=== PATIENT | female | born 1985 | race Asian ===

== ENCOUNTER 2017-06-21 09:23 | Emergency (ER) | payer BC ==
[~2017-06-21] VITALS: Ht 152.4 cm; Wt 77.1 kg
--- NOTE | 2017-06-21 09:23 | NUR ---
VAGINAL BLEEDING, 10 WEEKS , A2. GOWNED PT . AWAITING MD ORDER
[2017-06-21] MEDS ORDERED: IV NS 0.9% 1,000 ML BAG IV ONE (10:00)
[2017-06-21] MEDS ORDERED: ONDANSETRON HCL/PF 4 MG/2 ML VIAL IVP ONE (10:00)
--- NOTE | 2017-06-21 10:09 | NUR ---
[employer] BUS TECHNICIAN AT BEDSIDE FOR BLOOD DRAW
--- NOTE | 2017-06-21 10:11 | NUR ---
COLLECTIONS PROFESSIONAL AT BEDSIDE
[2017-06-21 10:31] LABS: CALCIUM, SERUM 9.2 mg/dL (8.5-10.1); CREATININE 0.6 mg/dL (0.6-1.3); POTASSIUM 4.2 mmol/L (3.5-5.1)
[2017-06-21 10:41] LABS: BASOPHILS # (AUTO) 0.1 /CMM (0.0-0.2); BASOPHILS % (AUTO) 0.6 % (0.0-2.0); EOSINOPHILS # (AUTO) 0.2 /CMM (0.0-0.7); EOSINOPHILS % (AUTO) 1.8 % (0.0-6.0); HEMATOCRIT 43 % (33-45); HEMOGLOBIN 13.6 g/dL (11.5-14.8); LYMPHOCYTES # (AUTO) 2.1 /CMM (0.8-4.8); LYMPHOCYTES % (AUTO) 21.1 % (20.0-44.0); MEAN CORPUSCULAR HEMOGLOBIN 25 PG (26.0-33.0); MEAN CORPUSCULAR HGB CONC 32 g/dl (31.0-36.0); MEAN CORPUSCULAR VOLUME 78 fL (82-100); MONOCYTES # (AUTO) 0.5 /CMM (0.1-1.30); MONOCYTES % (AUTO) 4.6 % (2.0-12.0); NEUTROPHILS # (AUTO) 7.2 /CMM (1.8-8.9); NEUTROPHILS % (AUTO) 71.9 % (43.0-81.0); PLATELET COUNT (AUTO) 332 /CMM (150-450); RDW COEFFICIENT OF VARIATION 14.9 (11.5-15.0); RED BLOOD CELL COUNT(AUTO) 5.44 MIL/uL (4.0-5.2)
[2017-06-21 10:46] LABS: INR 0.94 (0.87-1.13); PROTHROMBIN TIME 9.8 SECS (9.5-12.7)
[2017-06-21] MEDS ORDERED: ONDANSETRON HCL/PF 4 MG/2 ML VIAL ONE (10:54)
[2017-06-21 10:59] LABS: ALBUMIN 3.9 g/dL (3.4-5.0); BILIRUBIN,DIRECT 0.1 mg/dL (0.0-0.2); BILIRUBIN,TOTAL 0.3 mg/dL (0.2-1.0); TOTAL PROTEIN, SERUM 7.8 g/dL (6.4-8.2)
--- NOTE | 2017-06-21 11:00 | NUR ---
IV STARTED ON LAC, 20 G. BLOOD DRAWN AND SENT TO LAB. IV FLUIDS RUNNING PER MD ORDERS.
[2017-06-21 11:12] LABS: APPEARANCE,URINE Clear (CLEAR); BILIRUBIN,URINE Negative (NEGATIVE); BLOOD, URINE Large Ery/uL (NEGATIVE); COLOR,URINE Yellow (YELLOW); KETONES,URINE Negative (NEGATIVE); LEUKOCYTE ESTERASE ,URINE Negative (NEGATIVE); NITRITE, URINE Negative (NEGATIVE); PH,URINE 7.5 (5.0-8.0); PROTEIN,URINE Negative (NEGATIVE); UGLUCOSE Negative (NEGATIVE); UROBILINOGEN,URINE 0.2 EU/dL (0.2)
--- NOTE | 2017-06-21 11:12 | NUR ---
CALLED DR CATALAN'S OFFICE AND THEY NOTIFIED ME SHE IS OUT OF THE STATE. 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
--- NOTE | 2017-06-21 11:12 | NUR ---
DR GASPAR ON THE PHONE WITH DR RENNY HUYNH
[2017-06-21 11:19] LABS: RBC,URINE 21-50 /HPF (0-2)
[2017-06-21 11:20] LABS: BACTERIA,URINE 1+ /HPF (None Seen)
--- NOTE | 2017-06-21 11:20 | NUR ---
[facility]
[2017-06-21 12:07] VITALS: BP 128/92
--- NOTE | 2017-06-21 12:08 | NUR ---
IV removed. Catheter intact and site benign. Pressure and 4x4 applied to site. No bleeding noted. Patient discharged to home in stable condition. Written and verbal after care instructions given. Patient verbalizes understanding of instruction.
== END 2017-06-21 12:07 | disposition home or self-care (01) ==
LOC: ER 09:24
DX: O02.1 Missed abortion (principal)
CPT/HCPCS: 36415; 76856; 80048; 80076; 81001; 84702; 85025; 85730; 86850; 96360; 99285; A4606; J7030; Z7610; 81000-TC; J2405